=== PATIENT | male | born 1975 | race Caucasian/White ===

== ENCOUNTER 2020-10-14 08:51 | Emergency (ER) | payer OTHER, SELFPAY ==
--- NOTE | ~2020-10-14 | XR_ITS ---
EXAMINATION: [id number] EXAM DATE: 10/14/2020 09:22 INDICATION: Initial encounter following injury, with pain of the left ribs, chest posteriorly. Fell f orward moving a chair one week ago. TECHNIQUE: Frontal projection of the upper left ribs, frontal projection of the lower left ribs, obli que projection of the left ribs, frontal chest x-ray(s) for interpretation. [facility] FINDINGS: There are no displaced acute left rib fractures identified. Consider educating patient beba t even if there is a radiographically occult nondisplaced rib fracture, there is no specific treatmen t other than to refrain from activity that prevents healing. There is no soft tissue abnormality seen . No confluent consolidation, pneumothorax or pleural effusion suspected. Cardiomediastinal silhouett e is normal. IMPRESSION: No displaced left rib fractures. Reviewed, dictated and finalized at location B.
--- NOTE | 2020-10-14 09:05 | ED.GENADULT ---
HPI - General Adult General Chief complaint: Back Pain/Injury Stated complaint: Lt side pain Time Seen by Provider: 10/14/20 09:05 Source: patient and RN notes reviewed History of Present Illness HPI narrative: Patient is a 44-year-old male who presents the urgent care with complaints of left side/back pain. Patient states that he was racing in an office chair last and fell over the armrest hurting his left side. Patient states that he believes he cracked ribs . Patient states that he has been taking a lot of ibuprofen for his pain. States that it increases with deep breathing and certain movements. No other acute complaints. No acute distress noted. Patient aware of the plan of care. Some parts of this dictation were generated by voice recognition software and may contain typographical and/or grammatical inaccuracies. Related Data Home Medications Medication Instructions Recorded Confirmed No Home Medications 10/14/20 10/14/20 Allergies Allergy/AdvReac Type Severity Reaction Status Date / Time No Known Allergies Allergy Verified 10/14/20 09:14 Review of Systems Review of Systems: Narrative: CONSTITUTIONAL: Denies fever, chills, or sweats. EYES: Denies visual changes, redness, or discharge. ENT: Denies rhinorrhea, congestion, sore throat, or otalgia. CARDIOVASCULAR: Denies chest pain, palpitations, or edema. RESPIRATORY: Denies cough or dyspnea. GASTROINTESTINAL: Denies abdominal pain, nausea, vomiting, or diarrhea. GENITOURINARY: Denies dysuria or hematuria. SKIN: Denies rash or itching. MUSCULOSKELETAL: Reports of left side/mid back pain NEUROLOGIC: Denies headache, numbness, or weakness. All other systems reviewed are negative, except as documented in HPI. PMFSH Comments At the time of my signature, I reviewed and agree with the nursing past medical, surgical, social, and family history. There is no relevant family history pertinent to the patient complaint. Exam Narrative: Exam Narrative: GENERAL: This is a well-nourished, well-developed patient, in no apparent distress. HEAD: normocephalic, atraumatic. EYES: PERRL. Sclera clear/white. Vision is grossly intact. EARS: External ears normal NOSE: External nose normal with no obvious nasal discharge, nares without redness, no rhinorrhea. THROAT: Mucous membranes moist NECK: Neck supple CARDIOVASCULAR: Regular rate and rhythm without murmurs, gallops, or rubs. RESPIRATORY: Clear to auscultation. Breath sounds equal bilaterally. No wheezes, rales, or rhonchi. SKIN: warm, intact with no suspicious lesions or rash, good texture and turgor. NEURO: awake, alert, and oriented to person, place and time. There were no obvious focal neurologic abnormalities. EXTREMITIES: No clubbing, cyanosis, or edema. BACK: Moderate tenderness to thoracic left\lateral left side rib region without bruising Course Vital Signs Vital signs: Vital Signs Temperature 97.6 F 10/14/20 09:06 Pulse Rate 84 10/14/20 09:06 Respiratory Rate 18 10/14/20 09:06 Blood Pressure 158/81 H 10/14/20 09:06 Pulse Oximetry 100 10/14/20 09:06 Temperature 97.6 F 10/14/20 09:06 Pulse Rate 84 10/14/20 09:06 Respiratory Rate 18 10/14/20 09:06 Blood Pressure 158/81 H 10/14/20 09:06 Pulse Oximetry 100 10/14/20 09:06 Reviewed-patient is informed that they may have pre-hypertension or hypertension based on a blood pressure reading in the department. I recommend the patient call the primary care provider listed on their discharge instructions or a physician of their choice this week to arrange follow-up for further evaluation of possible pre-hypertension or hypertension. Medical Decision Making MDM Narrative Medical decision making narrative: Reviewed x-ray results with the patient. He is aware that 10th rib is fractured. Advised the patient not to bind the chest. Avoid any strenuous activity or heavy lifting. Be sure to practice deep breathing and use Tylenol/i
[2020-10-14 09:06] VITALS: BP 158/81; PULSE 84; RESP 18; TEMP 36.4; O2SAT 100
== END 2020-10-14 10:00 | disposition home or self-care (01) ==
PROVIDERS: Emergency Provider Nurse Practitioner Family
DX: S22.32XA Fracture of one rib, left side, initial encounter for closed fracture (principal); W07.XXXA Fall from chair, initial encounter
CPT/HCPCS: 71101; 99213; G0463